=== PATIENT | male | born 1965 | race Caucasian/White ===

== ENCOUNTER 2020-07-19 14:33 | Emergency (ER) | payer OTHER | END 2020-07-19 16:01 | disposition home or self-care (01) | LOC: JVIRT 14:33 | DX: Z03.818 Encounter for observation for suspected exposure to other biological agents ruled out (principal) | CPT/HCPCS: C9803; Q3014-GT; U0003 ==

== ENCOUNTER 2020-08-20 12:03 | Emergency (ER) | payer OTHER | END 2020-08-20 12:41 | disposition home or self-care (01) | LOC: JVIRT 12:03 | DX: Z20.828 Contact with and (suspected) exposure to other viral communicable diseases (principal) | CPT/HCPCS: C9803; G2012-GT; U0003 ==